=== PATIENT | female | born 1980 | race Caucasian/White ===

== ENCOUNTER 2018-08-23 01:40 | Emergency (ER) | payer MEDICAID ==
[~2018-08-23] VITALS: Ht 165.1 cm; Wt 87.8 kg
[2018-08-23 02:20] LABS: BASOPHILS # (AUTO) 0.06 x10^3/uL (0-0.1); BASOPHILS % (AUTO) 1 % (0-1); EOSINOPHILS # (AUTO) 0.18 x10^3/uL (0-0.4); EOSINOPHILS % (AUTO) 2 % (1-7); LYMPHOCYTES % (AUTO) 22 % (22-44); MD NO; MEAN CORPUSCULAR HEMOGLOBIN 28.1 pg (27.0-34.8); MEAN CORPUSCULAR HGB CONC 33.8 g/dL (32.4-35.8); MEAN PLATELET VOLUME 8.6 fL (7.4-10.4); MONOCYTES # (AUTO) 0.68 x10^3/uL (0.2-0.8); MONOCYTES % (AUTO) 7 % (2-9); NEUTROPHILS # (AUTO) 6.57 x10^3/uL (1.8-6.8); NEUTROPHILS % (AUTO) 69 % (42-75); PLATELET COUNT 298 x10^3/uL (130-400); RED BLOOD COUNT 4.93 x10^6/uL (3.82-5.3); RED CELL DISTRIBUTION WIDTH 17.9 % (9.6-15.2)
[2018-08-23 02:53] LABS: MICROSCOPIC NOT IND
[2018-08-23 03:01] LABS: CULTURE INDICATED? NO
[2018-08-23 03:19] LABS: AMPHETAMINE SCREEN, URINE Positive (Negative); BARBITURATE SCREEN, URINE Negative (Negative); BENZODIAZEPINE SCREEN, URINE Negative (Negative); CANNABINOID SCREEN, URINE Negative (Negative); COCAINE SCREEN, URINE Negative (Negative); METHADONE SCREEN, URINE Negative (Negative); OPIATE SCREEN, URINE Negative (Negative)
[2018-08-23 04:36] VITALS: BP 153/95
== END 2018-08-23 04:37 | disposition home or self-care (01) ==
LOC: ED 04:29
DX: O20.0 Threatened abortion (principal); F15.10 Other stimulant abuse, uncomplicated; Z87.891 Personal history of nicotine dependence; Z3A.15 15 weeks gestation of pregnancy
CPT/HCPCS: 36415; 76801; 80307; 81003; 84702; 85025; 86901; 99285